=== PATIENT | male | born 1955 | race Caucasian/White ===

== ENCOUNTER → 2017-10-15 | Day surgery (SDC) | payer OTHER ==
[~2017-10-15] MED LIST: Lactated Ringers 500 ML IV SCH; Propofol 200 MG/20 ML SDV IV ONE
--- NOTE | 2017-10-18 09:01 | OR ---
DATE OF OPERATION: 10/15/2017 PREOPERATIVE DIAGNOSIS: HISTORY OF COLON CANCER. POSTOPERATIVE DIAGNOSIS: HISTORY OF COLON CANCER. SURGEON: Yossi Hall MD PROCEDURE PERFORMED: Full-length colonoscopy. 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 COMPLICATIONS: None. SPECIMEN: None. FINDINGS: 1. Full-length colonoscopy. 2. Moderate sigmoid diverticulosis. RECOMMENDATIONS: Follow up colonoscopy every 5 years. INDICATIONS: The patient is apparently on a 5-year program right now for his colonoscopy, and history of colon cancer in his past. DESCRIPTION OF PROCEDURE: The patient was prepped and draped, placed in the left lateral decubitus position. A lubricated Olympus colonoscope was inserted and easily advanced to the cecum. Direct visualization of the ileocecal valve and appendiceal orifice was accomplished. The bowel prep was adequate. Upon withdrawal of the scope, throughout the entire length of the colon, I could find no signs of any polyps, mass, ulceration, or bleeding sites. No vascular abnormalities or signs of colitis. The patient does have scattered diverticula, moderate in severity throughout the sigmoid colon and in the rectosigmoid junction. The rectal vault was unremarkable. Retroflexion of the scope in the rectum showed no anal lesions. Air was suctioned, scope removed without complication. WENDY/JULIANA /[id number]
== END ==
LOC: CC.SDS 11:52
PROVIDERS: ATTEND Family Medicine
DX: Z12.11 Encounter for screening for malignant neoplasm of colon (principal); K57.30 Diverticulosis of large intestine without perforation or abscess without bleeding; N40.0 Benign prostatic hyperplasia without lower urinary tract symptoms; I10 Essential (primary) hypertension; E78.5 Hyperlipidemia, unspecified; E55.9 Vitamin D deficiency, unspecified; Z85.038 Personal history of other malignant neoplasm of large intestine; Z88.1 Allergy status to other antibiotic agents; Z79.899 Other long term (current) drug therapy; Z87.891 Personal history of nicotine dependence
CPT/HCPCS: 45378; J2704; J7120

== ENCOUNTER → 2018-02-25 | Day surgery (SDC) | payer OTHER ==
[~2018-02-25] MED LIST changes: +Lactated Ringers 1,000 ML IV SCH; -Lactated Ringers 500 ML IV SCH
--- NOTE | 2018-02-28 08:14 | OR ---
DATE OF OPERATION: 02/25/2018 PREOPERATIVE DIAGNOSIS: DYSPHAGIA WITH A HISTORY OF GASTROESOPHAGEAL REFLUX DISEASE. POSTOPERATIVE DIAGNOSIS: DYSPHAGIA WITH A HISTORY OF GASTROESOPHAGEAL REFLUX DISEASE. SURGEON: Yossi Hall MD PROCEDURE: EGD WITH BIOPSIES X4, MARTINEZ. 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 COMPLICATIONS: None. SPECIMEN: 1. Duodenal biopsy x1. 2. Antral biopsy x2. 3. Distal esophageal/Z-line biopsy x1. 4. MARTINEZ. FINDINGS: 1. Full-length EGD. 2. Mild duodenitis in duodenal bulb. 3. Antral gastritis, chronic with focal erosion, pyloric area. 4. Hiatal hernia with nonobstructing Schatzki's ring and mild reflux esophagitis. 5. Cricopharyngeal inflammation, likely reflux induced. RECOMMENDATIONS: We will put the patient on Dexilant. He will need close followup with Dr. Whittaker. If he continues to have cricopharyngeal symptoms, I would recommend follow up with ENT. INDICATIONS: The patient is having some ongoing issues with reflux for years. He has been having some worsening dysphagia and feels like food is getting stuck at the back of his throat and upper hypopharynx area. Dr. Whittaker sent him for EGD. DESCRIPTION OF PROCEDURE: The patient was prepped and draped, placed in left lateral decubitus position. A lubricated Olympus gastroscope was inserted, advanced to cricopharyngeus region, and with some difficulty intubated over that. There was some prominence of the cricopharyngeus region and just past it, some signs of some chronic reflux as evidenced by some inflammation there. The scope was easily advanced down the esophagus which otherwise was benign. At the Z-line, which was around 38 cm, the patient had a small hiatal hernia with some very minimal reflux esophagitis. There is a nonobstructing Schatzki's ring here. The scope was advanced into the stomach through the pylorus and 2nd portion of duodenum. Duodenal bulb did have some inflammatory change. No focal ulcerations. A biopsy was taken. The scope was brought back into the stomach. There is evidence of gastritis throughout most of the antrum and a focal erosion around the pyloric area. Two biopsies of that area were taken along with a MARTINEZ test. The rest of the fundus and cardia appeared benign with and without retroflexion of the scope. The hernia could be seen visualized from below with retroflexion. Brought the scope back into the distal esophagus. There was one little small focal area of reflux esophagitis above the Z line. We did do a biopsy of that. Air was then suctioned, scope removed without complication. WENDY/JULIANA /[id number]
== END ==
LOC: CC.SDS 09:11
PROVIDERS: ATTEND Family Medicine
DX: K21.0 Gastro-esophageal reflux disease with esophagitis (principal); K44.9 Diaphragmatic hernia without obstruction or gangrene; K31.89 Other diseases of stomach and duodenum; K22.2 Esophageal obstruction; N40.0 Benign prostatic hyperplasia without lower urinary tract symptoms; E78.5 Hyperlipidemia, unspecified; I10 Essential (primary) hypertension; E55.9 Vitamin D deficiency, unspecified; Z88.1 Allergy status to other antibiotic agents; Z79.899 Other long term (current) drug therapy; Z87.891 Personal history of nicotine dependence
CPT/HCPCS: 43239; 87081; J7120; J2704

== ENCOUNTER 2020-01-02 01:16 | Emergency (ER) | payer OTHER ==
[2020-01-02 02:11] LABS: CHLORIDE,CL 106 mEq/L (98-106); SODIUM,NA 141 mEq/L (136-145)
--- NOTE | 2020-01-02 02:38 | EDM.PDOC ---
ED HPI GENERAL MEDICAL PROBLEM - General Chief Complaint: Respiratory Problem Stated Complaint: shortness of breath Time Seen by Provider: 01/02/20 01:39 Source of Information: Reports: Patient, Family () History Limitations: Reports: No Limitations - History of Present Illness INITIAL COMMENTS - FREE TEXT/NARRATIVE: Clarence is a 64 yo male who presents to the ED via private vehicle with complaints of difficulty breathing. States he was lying in bed tonight and just felt like he couldn't get any air. Admits the last few days he has noticed some shortness of breath. States he did go to the gym yesterday and walked on the treadmill which didn't really bother him. Denies any increase in shortness of breath with activity. He states it seems to come and go. Currently states he is feeling short of breath and oxygen saturation is currently 98%. He denies being sick. States he hasn't had any other upper respiratory symptoms, no cough. Is a prior smoker but hasn't smoked in years now, quit 12 years ago. Denies any chest pain or palpitations in his chest. Admits to general chronic fatigue. States he hasn't been traveling. Denies any swelling in his legs. Duration: Waxing/Waning Location: Reports: Chest - Related Data Allergies Allergy/AdvReac Type Severity Reaction Status Date / Time levofloxacin [From Levaquin] Allergy Other Verified 01/02/20 01:21 Home Meds: Home Meds Ascorbic Acid [Vitamin C] 1,000 mg PO DAILY 10/14/17 [History] Lisinopril 10 mg PO DAILY 10/14/17 [History] Magnesium 30 mg PO DAILY 10/14/17 [History] Ubidecarenone [Co Q-10] 100 mg PO ASDIRECTED 10/14/17 [History] atorvaSTATin Calcium [Atorvastatin Calcium] 10 mg PO QPM 10/14/17 [History] Pantoprazole Sodium [Protonix] 40 mg PO DAILY 01/02/20 [History] Tamsulosin HCl 0.4 mg PO DAILY 01/02/20 [History] Past Medical History Cardiovascular History: Reports: High Cholesterol, Hypertension Gastrointestinal History: Reports: GERD Genitourinary History: Reports: BPH Oncologic (Cancer) History: Reports: Squamous Cell Carcinoma Dermatologic History: Reports: Melanoma - Past Surgical History GI Surgical History: Reports: Colonoscopy, EGD, Polypectomy Male Surgical History: Reports: None Oncologic Surgical History: Reports: None Dermatological Surgical History: Reports: Skin Biopsy Social & Family History - Family History Family Medical History: Noncontributory - Tobacco Use Smoking Status *Q: Former Smoker Used Tobacco, but Quit: Yes Month/Year Tobacco Last Used: 12yrs ago - Caffeine Use Caffeine Use: Reports: Coffee - Recreational Drug Use Recreational Drug Use: No ED ROS GENERAL - Review of Systems Review Of Systems: See Below Constitutional: Reports: Fatigue. Denies: Fever, Chills, Weakness, Night Sweats HEENT: Reports: No Symptoms Respiratory: Reports: Shortness of Breath. Denies: Wheezing, Pleuritic Chest Pain, Cough Cardiovascular: Reports: Orthopnea. Denies: Chest Pain, Dyspnea on Exertion, Edema, Lightheadedness, Palpitations GI/Abdominal: Reports: No Symptoms. Denies: Bloody Stool, Constipation, Diarrhea, Nausea, Vomiting : Reports: No Symptoms Musculoskeletal: Reports: No Symptoms Skin: Reports: No Symptoms Neurological: Reports: No Symptoms Psychiatric: Denies: Agitation, Anxiety, Depression ED EXAM, GENERAL - Physical Exam Exam: See Below Exam Limited By: No Limitations General Appearance: Alert, WD/WN, No Apparent Distress, Anxious Ears: Normal External Exam, Normal Canal, Hearing Grossly Normal, Normal TMs Nose: Normal Inspection, Normal Mucosa, No Blood Throat/Mouth: Normal Inspection, Normal Lips, Normal Teeth, Normal Oropharynx, Normal Voice, No Airway Compromise Head: Atraumatic, Normocephalic Neck: Normal Inspection, Supple Respiratory/Chest: No Respiratory Distress, Lungs Clear, Normal Breath Sounds, No Accessory Muscle Use, Chest Non-Tender. No: Rales, Rhonchi, Wheezing, Accessory Muscle Use, Retractions Cardiovascular: Regular Rate, Rhythm, No Edema, No Murmur GI/Abdominal: Normal Bowel Sounds, Soft, No Abnormal Bruit Extremities: Normal Inspection, No Pedal Edema Neurological: Alert, Oriented, Normal Cognition, No Motor/Sensory Deficits Psychiatric: Anxious. No: Depressed Mood, Flat Affect, Tearful Skin Exam: Warm, Dry, Intact, Normal Color, No Rash. No: Diaphoretic EKG INTERPRETATION EKG Date: 01/02/20 Rhythm: NSR Rate (Beats/Min): 60 QRS: RBBB Comparison: NA - No Prior EKG Course - Vital Signs Last Recorded V/S: Last Vital Signs Temp 97.1 F 01/02/20 01:19 Pulse 63 01/02/20 01:19 Resp 20 01/02/20 01:19 BP 130/63 01/02/20 01:19 Pulse Ox 97 01/02/20 01:49 - Orders/Labs/Meds Orders: Active Orders 24 hr Category Date Time Status Chest 2V [CR] Stat Exams 01/02/20 01:42 Ordered Labs: Laboratory Tests 01/02/20 01/02/20 01/02/20 Range/Units 01:45 01:45 01:45 WBC 13.6 H (5.0-10.0) 10^3/uL RBC 5.06 (4.50-6.00) 10^6/uL Hgb 13.7 L (14.0-18.0) g/dL Hct 41.4 (40.0-54.0) % MCV 81.8 L (82.0-94.0) fL MCH 27.1 (27.0-32.0) pg MCHC 33.1 (33.0-38.0) g/dL RDW Coeff of Gael 15.3 H (11.0-15.0) % Plt Count 254 (150-400) 10^3/uL Neut % (Auto) 82.4 (35-85) % Lymph % (Auto) 8.7 L (10-55) % Crockett % (Auto) 6.9 (0-16) % Eos % (Auto) 1.8 (0-5) % Baso % (Auto) 0.2 (0-3) % Neut # (Auto) 11.21 H (1.80-7.00) 10^3/uL Lymph # (Auto) 1.18 (1.00-4.80) 10^3/uL Crockett # (Auto) 0.94 H (0.00-0.80) 10^3/uL Eos # (Auto) 0.24 (0.00-0.45) 10^3/uL Baso # (Auto) 0.03 10^3/uL D-Dimer, Quantitative 0.38 (0.00-0.50) Sodium 141 (136-145) mEq/L Potassium 3.9 (3.5-5.0) mEq/L Chloride 106 (98-106) mEq/L Carbon Dioxide 29 (21-32) mmol/L BUN 20 H (7-18) mg/dL Creatinine 1.2 (0.7-1.3) mg/dL Est Cr Clr Drug Dosing 64.21 mL/min Estimated GFR (MDRD) > 60 (>=60) mL/min Glucose 114 H (75-99) mg/dL Calcium 8.6 (8.4-10.1) mg/dL Creatine Kinase (35-232) U/L Troponin I (0.00-0.06) ng/mL C-Reactive Protein < 0.2 L (0.2-0.8) mg/dL NT-Pro-B Natriuret Pep 35 (0-1000) pg/mL 01/02/20 Range/Units 01:45 WBC (5.0-10.0) 10^3/uL RBC (4.50-6.00) 10^6/uL Hgb (14.0-18.0) g/dL Hct (40.0-54.0) % MCV (82.0-94.0) fL MCH (27.0-32.0) pg MCHC (33.0-38.0) g/dL RDW Coeff of Gael (11.0-15.0) % Plt Count (150-400) 10^3/uL Neut % (Auto) (35-85) % Lymph % (Auto) (10-55) % Crockett % (Auto) (0-16) % Eos % (Auto) (0-5) % Baso % (Auto) (0-3) % Neut # (Auto) (1.80-7.00) 10^3/uL Lymph # (Auto) (1.00-4.80) 10^3/uL Crockett # (Auto) (0.00-0.80) 10^3/uL Eos # (Auto) (0.00-0.45) 10^3/uL Baso # (Auto) 10^3/uL D-Dimer, Quantitative (0.00-0.50) Sodium (136-145) mEq/L Potassium (3.5-5.0) mEq/L Chloride (98-106) mEq/L Carbon Dioxide (21-32) mmol/L BUN (7-18) mg/dL Creatinine (0.7-1.3) mg/dL Est Cr Clr Drug Dosing mL/min Estimated GFR (MDRD) (>=60) mL/min Glucose (75-99) mg/dL Calcium (8.4-10.1) mg/dL Creatine Kinase 137 (35-232) U/L Troponin I < 0.017 (0.00-0.06) ng/mL C-Reactive Protein (0.2-0.8) mg/dL NT-Pro-B Natriuret Pep (0-1000) pg/mL - Radiology Interpretation Free Text/Narrative:: Chest x-ray shows no sign of pleural effusions or pneumothorax. No acute cardiopulmonary changes. Departure - Departure Time of Disposition: 03:08 Disposition: Home, Self-Care 01 Clinical Impression: Shortness of breath - Discharge Information Instructions: Shortness of Breath, Adult, [id number] Forms: ED Department Discharge Additional Instructions: Labs, exam, vital signs tonight showed no sign of cardiac or pulmonary diseases. Chest x-ray was negative for any acute findings Monitor for any worsening of shortness of breath. If symptoms worsen, any chest pain, palpitations in chest or any new onset of symptoms I advise returning to the ED. Recommend scheduling recheck in clinic this week. Sepsis Event Note - Evaluation Sepsis Screening Result: No Definite Risk - Focused Exam Vital Signs: Vital Signs Temp Pulse Resp BP Pulse Ox 01/02/20 01:49 97 01/02/20 01:19 97.1 F 63 20 130/63 98 Date Exam was Performed: 01/02/20 Time Exam was Performed: 03:05 - Problem List & Annotations (1) Shortness of breath SNOMED Code(s): 350647292 Code(s): R06.02 - SHORTNESS OF BREATH Status: Acute Current Visit: Yes - My Orders Last 24 Hours: My Active Orders 01/02/20 01:42 Chest 2V [CR] Stat - Assessment/Plan Last 24 Hours: My Active Orders 01/02/20 01:42 Chest 2V [CR] Stat Plan: Labs did show a mildly elevated WBC otherwise uneremarkable. CRP was normal. Cardiac enzymes are negative. D-dimer normal. Normal Pro-BNP is normal. Chest x- ray showed no concerning findings. Patient is otherwise asymptomatic with the sensation of shortness of breath. I did discuss with Clarence and his into detail his feelings of shortness of breath. did admit a few years ago he did have an episode similar and was diagnosed with an anxiety attack. I did discuss chronic fatigue, depression, silent anxiety with Clarence, which he doesn' t feel he has. I did reassure Clarence and his that current work up has been negative in regards to acute cardiopulmonary disease. I discussed closely monitoring kishore to see if symptoms completely resolved which he declined and wished to go home. We will discharge home at this time with instructions if symptoms worsen, new onset of chest pain, etc... to immediately return to the ED.
== END 2020-01-02 03:31 | disposition home or self-care (01) ==
LOC: CC.ED 01:16
DX: R06.02 Shortness of breath (principal); E78.00 Pure hypercholesterolemia, unspecified; I10 Essential (primary) hypertension; K21.9 Gastro-esophageal reflux disease without esophagitis; N40.0 Benign prostatic hyperplasia without lower urinary tract symptoms; Z79.899 Other long term (current) drug therapy; Z88.1 Allergy status to other antibiotic agents; Z87.891 Personal history of nicotine dependence
CPT/HCPCS: 36415; 71046; 80048; 82550; 83880; 84484; 85025; 85379; 86140; 93005; 99285-25

== ENCOUNTER → 2022-12-11 | Day surgery (SDC) | payer OTHER ==
[~2022-12-11] MED LIST changes: +Glycopyrrolate 0.2 MG/ML SDV ONE; +Ketamine 200 MG/20 ML MDV ONE; -Lactated Ringers 1,000 ML IV SCH; +Midazolam 1 MG/ML 2 ML SDV ONE; -Propofol 200 MG/20 ML SDV IV ONE; +Propofol 200 MG/20 ML SDV ONE; +fentaNYL 50 MCG/ML SDV ONE
[2022-12-11] MEDS: Lactated Ringers 1,000 ML IV SCH (14:10)
== END ==
LOC: CC.SDS 07:59
PROVIDERS: ATTEND Family Medicine
DX: Z12.11 Encounter for screening for malignant neoplasm of colon (principal); D12.2 Benign neoplasm of ascending colon; D12.5 Benign neoplasm of sigmoid colon; K57.30 Diverticulosis of large intestine without perforation or abscess without bleeding; I10 Essential (primary) hypertension; E78.5 Hyperlipidemia, unspecified; E55.9 Vitamin D deficiency, unspecified; N40.0 Benign prostatic hyperplasia without lower urinary tract symptoms; J30.9 Allergic rhinitis, unspecified; K21.9 Gastro-esophageal reflux disease without esophagitis; Z86.010 Personal history of colon polyps; Z88.1 Allergy status to other antibiotic agents; Z87.891 Personal history of nicotine dependence
CPT/HCPCS: J2250; J2704; J3010; J3490; J7120